=== PATIENT | male | born 1985 | race Caucasian/White ===

== ENCOUNTER 2017-02-02 20:11 | Emergency (ER) | payer BC, OTHER ==
[2017-02-02 21:50] VITALS: BP 146/87
--- NOTE | 2017-02-02 22:11 | UC ---
Throat Pain/Nasal Emmanuel HPI - HPI Summary HPI Summary: left ear pain began thursday, fevers, shills nausea vomiting - History of Current Complaint Chief Complaint: UCGeneralIllness Stated Complaint: HEADACHE/FEVER/CHILLS Time Seen by Provider: 02/02/17 22:04 Hx Obtained From: Patient Onset/Duration: Sudden Onset, Lasting Days, Still Present Severity: Moderate Pain Intensity: 6 Pain Scale Used: 0-10 Numeric Cough: None Associated Signs & Symptoms: Positive: Fever, Vomiting - Allergies/Home Medications Allergies/Adverse Reactions: Allergies Allergy/AdvReac Type Severity Reaction Status Date / Time environmental Allergy Runny Nose Uncoded 02/02/17 21:40 Home Medications: Home Medications [id number] [Excedrin Migraine 250-250-65 mg] 2 tab PO DAILY 02/02/17 [History Confirmed 02/02/17] Fluticasone NASAL SPRAY 50MCG* [Flonase NASAL SPRAY 50MCG*] 1 inh BOTH NARES DAILY 02/02/17 [History Confirmed 02/02/17] Levothyroxine TAB* [Synthroid TAB*] 50 mcg PO DAILY 02/02/17 [History Confirmed 02/02/17] PMH/Surg Hx/FS Hx/Imm Hx Previously Healthy: No Endocrine History Of: Reports: Thyroid Disease - HYPO - Surgical History Surgical History: Yes Surgery Procedure, Year, and Place: LEFT SHOULDER SX X 3. EAR TUBES X 2. ADENOIDECTOMY - Family History Known Family History: Positive: Hypertension - Social History Occupation: Employed Full-time Lives: With Family Alcohol Use: Occasionally Substance Use Type: None Smoking Status (MU): Never Smoked Tobacco Review of Systems Constitutional: Fever, Chills, Fatigue Skin: Negative Eyes: Negative ENT: Ear Ache - lrft Respiratory: Negative Cardiovascular: Negative Gastrointestinal: Negative Genitourinary: Negative Motor: Negative Neurovascular: Negative Musculoskeletal: Negative Neurological: Negative Psychological: Negative All Other Systems Reviewed And Are Negative: Yes Physical Exam Triage Information Reviewed: Yes Appearance: Well-Nourished, Ill-Appearing - mild, Pain Distress - mild Vital Signs: Initial Vital Signs Pulse 95 02/02/17 21:33 Resp 14 02/02/17 21:33 BP 146/87 02/02/17 21:33 Pulse Ox 99 02/02/17 21:33 Vital Signs Reviewed: Yes Eye Exam: Normal Eyes: Positive: Conjunctiva Clear ENT Exam: Normal ENT: Positive: Normal ENT inspection, Hearing grossly normal, Pharynx normal, TMs normal - right, TM red - left. Negative: Nasal congestion, Nasal drainage, Tonsillar swelling, Tonsillar exudate, Trismus, Muffled/hoarse voice Dental Exam: Normal Neck exam: Normal Neck: Positive: Supple, Nontender, No Lymphadenopathy Respiratory Exam: Normal Respiratory: Positive: Chest non-tender, Lungs clear, Normal breath sounds, No respiratory distress, No accessory muscle use Cardiovascular Exam: Normal Cardiovascular: Positive: RRR, Pulses Normal, Brisk Capillary Refill Musculoskeletal Exam: Normal Musculoskeletal: Positive: Strength Intact, ROM Intact, No Edema Neurological Exam: Normal Neurological: Positive: Alert, Muscle Tone Normal Psychological Exam: Normal Skin Exam: Normal Throat Pain/Nasal Course/Dx - Course Assessment/Plan: amoxicillin, hypertension information, DASH Diet Suggestions, follow with pcp - Differential Dx/Diagnosis Differential Diagnosis/HQI/PQRI: Otitis Media, Pharyngitis, Sinusitis, URI Provider Diagnoses: Left Otitis Media, high blood pressure with out dx of hypertension Discharge - Discharge Plan Condition: Stable Disposition: HOME Prescriptions: Amoxicillin (*) [Amoxicillin 875 MG (*)] 875 mg PO BID #20 tab Patient Education Materials: Fever in Adults (ED), Otitis Media (ED), DASH Eating Plan (ED), Hypertension (ED) Forms: *Work Release Referrals: Patrick Chris MD [Primary Care Provider] - 2 Weeks
[2017-02-02] MEDS ORDERED: Amoxicillin CAP* 500 MG PO ONE (22:29)
== END 2017-02-02 22:38 | disposition home or self-care (01) ==
LOC: UCCORT 20:11
DX: Z79.82 Long term (current) use of aspirin (principal); E03.9 Hypothyroidism, unspecified
CPT/HCPCS: 87651; 99212; A9270-GY; G0463

== ENCOUNTER 2019-02-06 07:40 | Emergency (ER) | payer BC ==
[2019-02-06 08:02] VITALS: BP 116/70
--- NOTE | 2019-02-06 08:07 | UC ---
Skin Complaint HPI - HPI Summary HPI Summary: 33 y/o male presents to the urgent care c/o tip of RT middle finger swollen, painful and draining pus at times for the past 5 days. Pt is a nail bitter. He poked the swelling w/ a needle and yellowish pus was coming our yesterday. Pain at touch is 8/10 and warm to touch. Pt has had this inflammation before. Pt has taking Ibuprofen PO to alleviate and has soak his finger in warm water to alleviate symptoms. Pt denies Hx of MRSA, fever, SOB, chest pain,abdominal pain, N/V/D. - History of Current Complaint Chief Complaint: UCSkin Time Seen by Provider: 02/06/19 08:06 Stated Complaint: SKIN CONERN - RIGHT MIDDLE FINGER Hx Obtained From: Patient Onset/Duration: Gradual Onset, Lasting Days - 5 days, Still Present, Worse Since - yesterday Skin Exposure Onset/Duration: Days Ago - many days since PT bites his nails Timing: Constant Onset Severity: Mild Current Severity: Moderate Pain Intensity: 6 Pain Scale Used: 0-10 Numeric Location: Discrete - Tip of RT middle finger swollen and painful and draining some pus at times Character: Swelling, Redness, Raised, Painful Aggravating Factor(s): Touch Alleviating Factor(s): Heat Associated Signs & Symptoms: Positive: Rash - RT middle finger swelling and redness and painful, Drainage - yellowish, Tenderness. Negative: Fever, Chills Related History: Other: - biting nails - Allergy/Home Medications Allergies/Adverse Reactions: Allergies Allergy/AdvReac Type Severity Reaction Status Date / Time environmental Allergy Runny Nose Uncoded 02/06/19 07:53 Home Medications: Home Medications Omeprazole 20 mg PO DAILY 02/06/19 [History Confirmed 02/06/19] PMH/Surg Hx/FS Hx/Imm Hx Previously Healthy: Yes Endocrine History: Hypothyroidism GI/ History: Gastroesophageal Reflux - Surgical History Surgical History: Yes Surgery Procedure, Year, and Place: LEFT SHOULDER DISLOCATION REPAIR, X 3. EAR TUBES X 2. ADENOIDECTOMY - Family History Known Family History: Positive: Hypertension - Social History Occupation: Employed Full-time Lives: With Family Alcohol Use: Rare Substance Use Type: None Smoking Status (MU): Never Smoked Tobacco Review of Systems All Other Systems Reviewed And Are Negative: Yes Constitutional: Positive: Negative Skin: Positive: Other - Tip of the RT middle finger swollen, painfull and draining pus Eyes: Positive: Negative ENT: Positive: Negative Respiratory: Positive: Negative Cardiovascular: Positive: Negative Gastrointestinal: Positive: Negative Genitourinary: Positive: Negative Motor: Positive: Negative Neurovascular: Positive: Negative Musculoskeletal: Positive: Other: - RT middle finger pain s/p biting his nails Neurological: Positive: Negative Psychological: Positive: Negative Is Patient Immunocompromised?: No Physical Exam - Summary Physical Exam Summary: Vital Signs Reviewed: Yes General: well developed, well nourished male sitting in the examining table w/o any apparent distress Eye Exam: Normal Eyes: Positive: Conjunctiva Clear - PERRLA, EOMI, fundi grossly normal ENT: Positive: Normal ENT inspection, Hearing grossly normal, Pharynx normal, TMs normal Neck: Positive: Supple, Nontender, No Lymphadenopathy Respiratory: Positive: Chest non-tender, Lungs clear, Normal breath sounds, No respiratory distress Cardiovascular: Positive: RRR, No Murmur, Pulses Normal, Brisk Capillary Refill Abdomen Description: Positive: Nontender, No Organomegaly, Soft. Negative: CVA Tenderness (R), CVA Tenderness (L) Bowel Sounds: Positive: Present Musculoskeletal: Positive: Strength Intact, ROM Intact, No Edema Neurological: Positive: Alert, Muscle Tone Normal Psychological Exam: Normal Skin: Positive: RT # 3 phalanx on the medial aspect of the nail a small erythematous pustule that is indurated and fluctuant, tender to palpation, swollen, and warm to touch about .5cm in size. FROM of RT middle phalanx, sensation is intact, capillary refill WNL, reflexes WNL. Pt's nails and al bitten Triage Information Reviewed: Yes Vital Signs: Initial Vital Signs Temp 98.2 F 02/06/19 07:56 Pulse 72 02/06/19 07:56 Resp 16 02/06/19 07:56 BP 116/70 02/06/19 07:56 Pulse Ox 100 02/06/19 07:56 Course/Dx - Course Course Of Treatment: 33 y/o male presents to the urgent care c/o tip of RT middle finger swollen, painful and draining pus at times for the past 5 days. Pt is a nail bitter. He poked the swelling w/ a needle and yellowish pus was coming our yesterday. Pain at touch is 8/10 and warm to touch. Pt has had this inflammation before. Pt has taking Ibuprofen PO to alleviate and has soak his finger in warm water to alleviate symptoms. Pt denies Hx of MRSA, fever, SOB, chest pain,abdominal pain, N/V/D. Pt w/ RT middle finger paronychia on examination. I&D of paronychia procedure:The procedure was explained and consent obtained. Jefferson protocol performed. Digital block performed at base of of RT 3rd phalanx w/ 1 mL of Lido 1% with good anesthesia. Sterile drape and prep were done. The fluctuant center around nail was incised with #11 blade scalpel. A small amount of caseous material was expressed . wound cultures obtained and sent to lab to r/o MRSA. wound was irrigated with normal saline. Bacitracin topical ointment applied and wound covered with sterile dressing. The patient tolerated the procedure well. Pt Rx Keflex PO and Bacitrain oint and Domeboro packets to alleviate symptoms. Pt advised fever develops and pain increase despite ABX to go immediately to the ER for further management. D/C instructions explained. Pt understood and agreed with D/C instructions. Left the clinic ambulating A&OX3. - Differential Diagnoses - Skin Complaint Differential Diagnoses: Abscess, Cellulitis, Impetigo, Local Allergic Reaction, MRSA, Tinea, Other - paronychia - Diagnoses Provider Diagnosis: Paronychia of right middle finger Discharge - Sign-Out/Discharge Documenting (check all that apply): Patient Departure - D/C home All imaging exams completed and their final reports reviewed: No Studies - Discharge Plan Condition: Stable Disposition: HOME Prescriptions: Aluminum Sulf/Ca Acetate KATHIE* [[place]ome[place] KATHIE*] 1 applic TOPICAL TID #1 kathie Bacitracin OINTMENT* 1 applic TOPICAL BID #1 tube Cephalexin CAP* [Keflex CAP*] 500 mg PO QID #28 cap Patient Education Materials: Paronychia (ED) Referrals: Patrick Chris MD [Primary Care Provider] - 2 Days Additional Instructions: 1-Please take full course of antibiotic to avoid resistance. Keep wound clean and dry with a sterile dressing. Apply bacitracin topical as directed 2- Soak your finger w/ warm water and [place] packets to alleviate symptoms 3-. Take Ibuprofen PO q6-8hrs prn for pain or swelling. 4-If you develop fever or redness despite antibiotic please go to the ER immediately or return to the Urgent care. 5- Wound culture sent to lab, if any abnormal result you will receive a call from us. 6- Take Ibuprofen PO q6-8hr prns after meals for pain and swelling - Billing Disposition and Condition Condition: STABLE Disposition: Home - Attestation Statements Provider Attestation: Per institutional requirements, I have reviewed the chart, however, I was not consulted specifically or made aware of this patient by the midlevel provider. I did not personally evaluate, interact with , or disposition this patient.
[2019-02-06] MEDS ORDERED: Lidocaine 1%* 5 ML VIAL INJ ONE (08:16)
--- NOTE | 2019-02-06 16:54 | ED ---
Progress - Progress Note Progress Note: Lab results are available for review: Wound culture: MRSA negative, staph aureus positive and PCR 1+ neutrophils, 3+ gram-positive cocci Culture/sensitivity pending Patient was started on Keflex today. No change in plan Course/Dx - Diagnoses Provider Diagnoses: Paronychia of right middle finger Discharge - Sign-Out/Discharge Documenting (check all that apply): Post-Discharge Follow Up All imaging exams completed and their final reports reviewed: No Studies - Discharge Plan Condition: Stable Disposition: HOME Prescriptions: Aluminum Sulf/Ca Acetate KATHIE* [[place] KATHIE*] 1 applic TOPICAL TID #1 kathie Bacitracin OINTMENT* 1 applic TOPICAL BID #1 tube Cephalexin CAP* [Keflex CAP*] 500 mg PO QID #28 cap Patient Education Materials: Paronychia (ED) Referrals: Patrick Chris MD [Primary Care Provider] - 2 Days Additional Instructions: 1-Please take full course of antibiotic to avoid resistance. Keep wound clean and dry with a sterile dressing. Apply bacitracin topical as directed 2- Soak your finger w/ warm water and [place] packets to alleviate symptoms 3-. Take Ibuprofen PO q6-8hrs prn for pain or swelling. 4-If you develop fever or redness despite antibiotic please go to the ER immediately or return to the Urgent care. 5- Wound culture sent to lab, if any abnormal result you will receive a call from us. 6- Take Ibuprofen PO q6-8hr prns after meals for pain and swelling - Billing Disposition and Condition Condition: STABLE Disposition: Home
--- NOTE | 2019-02-10 12:59 | UC ---
- Progress Note Progress Note: + culture for multiple bacteria. Odds are high that this is resolving with cephalexin, but if there is continued or worsening redness and drainage, I would suggest a change to augmentin. If improving, should complete course of cephalexin. Course/Dx - Diagnoses Provider Diagnoses: Paronychia of right middle finger Discharge - Sign-Out/Discharge Documenting (check all that apply): Patient Departure All imaging exams completed and their final reports reviewed: No Studies - Discharge Plan Condition: Stable Disposition: HOME Prescriptions: Aluminum Sulf/Ca Acetate KATHIE* [[place] KATHIE*] 1 applic TOPICAL TID #1 kathie Bacitracin OINTMENT* 1 applic TOPICAL BID #1 tube Cephalexin CAP* [Keflex CAP*] 500 mg PO QID #28 cap Patient Education Materials: Paronychia (ED) Referrals: Patrick Chris MD [Primary Care Provider] - 2 Days Additional Instructions: 1-Please take full course of antibiotic to avoid resistance. Keep wound clean and dry with a sterile dressing. Apply bacitracin topical as directed 2- Soak your finger w/ warm water and [place] packets to alleviate symptoms 3-. Take Ibuprofen PO q6-8hrs prn for pain or swelling. 4-If you develop fever or redness despite antibiotic please go to the ER immediately or return to the Urgent care. 5- Wound culture sent to lab, if any abnormal result you will receive a call from us. 6- Take Ibuprofen PO q6-8hr prns after meals for pain and swelling - Billing Disposition and Condition Condition: STABLE Disposition: Home
== END 2019-02-06 09:04 | disposition home or self-care (01) ==
LOC: UCCORT 07:40
DX: L03.011 Cellulitis of right finger (principal); B95.61 Methicillin susceptible Staphylococcus aureus infection as the cause of diseases classified elsewhere; B95.1 Streptococcus, group B, as the cause of diseases classified elsewhere; B95.4 Other streptococcus as the cause of diseases classified elsewhere; Z16.11 Resistance to penicillins; Z16.29 Resistance to other single specified antibiotic
CPT/HCPCS: 10060; 87070; 87076; 87077; 87184; 87185; 87186; 87205; 87640; 87641; 99212; G0463